=== PATIENT | female | born 1990 | race Caucasian/White ===

== ENCOUNTER 2018-08-23 19:53 | Emergency (ER) | payer SELFPAY ==
[~2018-08-23] VITALS: Ht 162.6 cm; Wt 64.0 kg
[2018-08-23] MEDS ORDERED: KETOROLAC 60MG/2ML VIAL IM ONE (21:00)
[2018-08-23] MEDS ORDERED: IBUPROFEN 600MG TABLET PO ONE (21:45)
[2018-08-23 23:14] VITALS: BP 115/72
== END 2018-08-23 23:14 | disposition home or self-care (01) ==
LOC: ER 19:53
DX: S33.5XXA Sprain of ligaments of lumbar spine, initial encounter (principal); S93.492A Sprain of other ligament of left ankle, initial encounter; W01.0XXA Fall on same level from slipping, tripping and stumbling without subsequent striking against object, initial encounter; Y93.89 Activity, other specified; Y92.89 Other specified places as the place of occurrence of the external cause; Y99.8 Other external cause status
CPT/HCPCS: 73610; 99283; J1885